=== PATIENT | male | born 1980 | race Two or more races ===

== ENCOUNTER 2017-01-30 22:30 | Emergency (ER) | payer BC ==
[~2017-01-30] VITALS: Ht 157.5 cm; Wt 44.5 kg
[2017-01-30] MEDS ORDERED: NS 55ml IV ONE (22:51)
[2017-01-30] MEDS ORDERED: HYDROmorphone 1 MG, DiphenhydrAMINE 25 MG in NS 55 ML IVPB ONE (23:15)
--- NOTE | 2017-01-30 23:20 | Emergency Room Report ---
History of Present Illness General Chief Complaint: Abdominal Pain Source: Patient, EMS Present Illness HPI Patient 36-year-old male presented after increased pain to his upper abdomen. The patient reports having had prior history of renal transplant and pancreatitis. Patient states that he had previously been on perineal dialysis. He states that he had been vomiting. He had not been having any diarrhea. Patient reports being compliant with his immunosuppressive medications. He states that he takes CellCept as well as Prograf.Patient was noted to have the no reported fever. He denies recent alcohol use. He states he's had previous episodes of pancreatitis. He states his whole similar to those episodes. Allergies: Coded Allergies: MORPHINE (Verified Allergy, Unknown, 01/30/17) Patient History Past Medical History: see triage record Reviewed Nursing Documentation: PMH: Agreed, PSxH: Agreed Nursing Documentation-PMH Past Medical History: No History, Except For Hx Hypertension: Yes Hx Dialysis: Yes - Kidney transplant Hx Seizures: Yes Review of Systems All Other Systems: negative except mentioned in HPI Physical Exam Vital Signs Date Time Temp Pulse Resp B/P Pulse Ox O2 Delivery O2 Flow Rate FiO2 01/30/17 22:41 98.1 76 16 111/76 99 Room Air Sp02 EP Interpretation: reviewed, normal General Appearance: normal inspection, well appearing, no apparent distress, alert, GCS 15, non-toxic Head: atraumatic ENT: normal ENT inspection, hearing grossly normal, normal voice Neck: normal inspection, full range of motion, supple, no bony tend Respiratory: normal inspection, lungs clear, normal breath sounds, no respiratory distress, no retraction, no wheezing Cardiovascular #1: regular rate, rhythm, no edema Gastrointestinal: normal inspection, normal bowel sounds, non tender, soft, no guarding, no hernia Genitourinary: no CVA tenderness Musculoskeletal: normal inspection, back normal, normal range of motion Neurologic: normal inspection, alert, oriented x3, responsive, ore puncher III-XII nml as tested, speech normal Psychiatric: normal inspection, judgement/insight normal, mood/affect normal Skin: normal inspection, normal color, no rash Medical Decision Making Diagnostic Impression: Primary Impression: Gastroenteritis ER Course Patient presented for abdominal pain. Differential diagnoses included ischemic bowel, appendicitis, perforated viscus, abdominal aortic aneurysm, inferior myocardial infarction, viral gastroenteritis Because of complexity of patient's case laboratory testing and imaging studies were ordered.The patient was noted to have a urine drug screen with multiple positive substances. Patient was given IV fluids as well as IV pain medications. The patient given IV antiemetics. Abdominal ultrasound showed no evidence of diminished flow to his transplant kidney or any evidence of her gallbladder disease or liver disease. The patient is advised followup with a transplant center locally have for further evaluation. Labs Test 01/31/17 00:00 White Blood Count 7.4 K/UL (4.8-10.8) Red Blood Count 4.21 M/UL (4.70-6.10) Hemoglobin 11.5 G/DL (14.2-18.0) Hematocrit 35.5 % (42.0-52.0) Mean Corpuscular Volume 84 FL (80-99) Mean Corpuscular Hemoglobin 27.4 PG (27.0-31.0) Mean Corpuscular Hemoglobin Concent 32.6 G/DL (32.0-36.0) Red Cell Distribution Width 12.8 % (11.6-14.8) Platelet Count 147 K/UL (150-450) Mean Platelet Volume 8.9 FL (6.5-10.1) Neutrophils (%) (Auto) 61.6 % (45.0-75.0) Lymphocytes (%) (Auto) 28.3 % (20.0-45.0) Monocytes (%) (Auto) 8.1 % (1.0-10.0) Eosinophils (%) (Auto) 1.2 % (0.0-3.0) Basophils (%) (Auto) 0.8 % (0.0-2.0) Prothrombin Time 10.6 SEC (9.30-11.50) Prothromb Time International Ratio 1.0 (0.9-1.1) Activated Partial Thromboplast Time 30 SEC (23-33) Urine Color Yellow Urine Appearance Clear Urine pH 5 (4.5-8.0) Urine Specific [place] 1.025 (1.005-1.035) Urine Protein 1+ (NEGATIVE) Urine Glucose (UA) Negative (NEGATIVE) Urine Ketones Negative (NEGATIVE) Urine Occult Blood Negative (NEGATIVE) Urine Nitrite Negative (NEGATIVE) Urine Bilirubin 1+ (NEGATIVE) Urine Ictotest Positive Urine Urobilinogen 1 MG/DL (0.0-1.0) Urine Leukocyte Esterase 1+ (NEGATIVE) Urine RBC 0 /HPF (0 - 0) Urine WBC 0-2 /HPF (0 - 0) Urine Squamous Epithelial Cells None /LPF (NONE/OCC) Urine Bacteria Few /HPF (NONE) Sodium Level 145 mEQ/L (135-145) Potassium Level 5.5 mEQ/L (3.4-4.9) Chloride Level 106 mEQ/L (98-107) Carbon Dioxide Level 25 mEQ/L (20-30) Anion Gap 14 (5-15) Blood Urea Nitrogen 20 mg/dL (7-23) Creatinine 1.4 mg/dL (0.7-1.2) Estimat Glomerular Filtration Rate 58.0 mL/min (>60) Glucose Level 102 mg/dL (74-106) Calcium Level 9.7 mg/dL (8.6-10.2) Total Bilirubin 0.3 mg/dL (0.0-1.2) Aspartate Amino Transf (AST/SGOT) 14 U/L (5-40) Alanine Aminotransferase (ALT/SGPT) 7 U/L (3-41) Alkaline Phosphatase 57 U/L (40-129) Troponin I < 0.30 ng/mL (<=0.30) Total Protein 6.9 g/dL (6.6-8.7) Albumin 4.1 g/dL (3.5-5.2) Globulin 2.8 g/dL Albumin/Globulin Ratio 1.4 (1.0-2.7) Lipase 44 U/L (< 60) Urine Opiates Screen Negative (NEGATIVE) Urine Barbiturates Screen Negative (NEGATIVE) Phencyclidine (PCP) Screen Negative (NEGATIVE) Urine Amphetamines Screen Positive (NEGATIVE) Urine Benzodiazepines Screen Positive (NEGATIVE) Urine Cocaine Screen Negative (NEGATIVE) Urine Marijuana (THC) Screen Positive (NEGATIVE) Last Vital Signs Date Time Temp Pulse Resp B/P Pulse Ox O2 Delivery O2 Flow Rate FiO2 01/30/17 22:41 98.1 76 16 111/76 99 Room Air Status: improved Disposition: HOME, SELF-CARE Condition: Stable Scripts Dicyclomine Hcl* (BENTYL*) 10 Mg Capsule 10 MG ORAL FOUR TIMES A DAY, #30 CAP Prov: Ronn Chan 01/31/17 Ondansetron (Zofran) 4 Mg Tablet 4 MG ORAL Q6H Y for Nausea & Vomiting, #30 TAB 0 Refills Prov: Ronn Chan 01/31/17 Ronn Chan Jan 30, 2017 23:20
[2017-01-31] MEDS ORDERED: HYDROmorphone 1 MG, DiphenhydrAMINE 25 MG in NS 55 ML IVPB ONE (00:15)
[2017-01-31] MEDS ORDERED: HYDROmorphone 1mg/ml Carpuject ONE (00:20)
[2017-01-31] MEDS ORDERED: DiphenhydrAMINE 50mg/ml Inj ONE (00:21)
[2017-01-31 00:30] VITALS: BP 120/80
[2017-01-31 00:31] LABS: BASOPHILS % (AUTO) 0.8 % (0.0-2.0); EOSINOPHILS % (AUTO) 1.2 % (0.0-3.0); LYMPHOCYTES % (AUTO) 28.3 % (20.0-45.0); MEAN CORPUSCULAR HEMOGLOBIN 27.4 PG (27.0-31.0); MEAN CORPUSCULAR HGB CONC 32.6 G/DL (32.0-36.0); MEAN CORPUSCULAR VOLUME 84 FL (80-99); MEAN PLATELET VOLUME 8.9 FL (6.5-10.1); MONOCYTES % (AUTO) 8.1 % (1.0-10.0); NEUTROPHILS % (AUTO) 61.6 % (45.0-75.0); PLATELET COUNT 147 K/UL (150-450); RED BLOOD COUNT 4.21 M/UL (4.70-6.10); RED CELL DISTRIBUTION WIDTH 12.8 % (11.6-14.8); WHITE BLOOD COUNT 7.4 K/UL (4.8-10.8)
[2017-01-31 00:34] LABS: APPEARANCE,URINE CLEAR; KETONES,URINE NEGATIVE (NEGATIVE); LEUKOCYTE ESTERASE ,URINE 1+ (NEGATIVE); NITRITE,URINE NEGATIVE (NEGATIVE); PH,URINE 5 (4.5-8.0); PROTEIN,URINE 1+ (NEGATIVE); UROBILINOGEN,URINE 1 MG/DL (0.0-1.0)
[2017-01-31 00:42] LABS: ALBUMIN/GLOBULIN RATIO 1.4 (1.0-2.7); CALCIUM 9.7 mg/dL (8.6-10.2); CREATININE 1.4 mg/dL (0.7-1.2); POTASSIUM 5.5 mEQ/L (3.4-4.9); TOTAL PROTEIN 6.9 g/dL (6.6-8.7)
[2017-01-31 00:43] LABS: PROTHROMBIN TIME 10.6 SEC (9.30-11.50); TROPONIN I < 0.30 ng/mL (<=0.30)
[2017-01-31 00:52] LABS: BACTERIA,URINE FEW /HPF; ICTOTEST POSITIVE; RBC,URINE 0 /HPF (0 - 0); WBC,URINE 0-2 /HPF (0 - 0)
[2017-01-31 01:20] VITALS: BP 110/73
[2017-01-31] MEDS ORDERED: ZOFRAN4 MG ORAL (01:35)
[2017-01-31] MEDS ORDERED: BENTYL10 MG ORAL (01:35)
[2017-01-31] MEDS ORDERED: DiphenhydrAMINE 50mg/ml Inj IVP ONE (02:00)
[2017-01-31 02:20] VITALS: BP 106/64
--- NOTE | 2017-01-31 13:30 | Diagnostic Imaging Report ---
Indication: Abdominal pain Technique: Kearns-scale and duplex images of the upper abdomen were obtained Comparison: None Findings: Exam somewhat technically limited due to severe abdominal pain, per technologist. Gallbladder could not be visualized Common bile duct measures 3 mm in diameter. No intrahepatic biliary ductal dilatation. Liver demonstrates normal echogenicity, no focal abnormality. Portal vein and hepatic veins are patent. Pancreas is obscured by bowel gas. Spleen is unremarkable. Left kidney measures 6.3 cm in length. Right kidney measures 6.2 cm length. Both kidneys demonstrate increased echogenicity There is no hydronephrosis. No focal abnormality. There is a transplant right iliac fossa kidney which measures 10 cm in length. It demonstrates normal echogenicity, no hydronephrosis or focal abnormalities. It demonstrates normal Doppler flow. The bladder is unremarkable. Abdominal aorta is obscured by bowel gas . Impression: Limited exam, nonvisualization of the pancreas and abdominal aorta Nonvisualized gallbladder. Correlate with surgical history Negative for dilated ducts Right iliac fossa transplant kidney, appears unremarkable Echogenic ione kidneys, consistent with chronic renal disease
== END 2017-01-31 02:20 | disposition home or self-care (01) ==
LOC: EMR 22:50
DX: K52.9 Noninfective gastroenteritis and colitis, unspecified (principal); Z94.0 Kidney transplant status; I10 Essential (primary) hypertension; Z88.6 Allergy status to analgesic agent
CPT/HCPCS: 36415; 76700; 80053; 80300; 81003; 83690; 84484; 85025; 85610; 85730; 96374; 96375; 99284; J1170; J1200; J2405

== ENCOUNTER 2018-10-30 22:56 | Emergency (ER) | payer BC ==
[~2018-10-30] VITALS: Ht 157.5 cm; Wt 45.4 kg
[~2018-10-30 22:56] MED LIST: BENTYL10 MG ORAL; ZOFRAN4 MG ORAL
[2018-10-30] MEDS ORDERED: PRILOSEC OTC20 MG ORAL (23:06)
[2018-10-30] MEDS ORDERED: CELLCEPT PO (23:06)
--- NOTE | 2018-10-30 23:15 | NUR ---
ED Nurse Note: RECIEVED PT FROM HOME, HERE WITH C/O ABDOMINAL/ FLANK PAIN, PT STATES PAIN IS SEVERE, AND SUDDEN AT 8/10, PT HAS HX OF KIDNEY TRANSPLANTS AND DIALYSIS, PT IMMEDIATELY STATES TO GIVE HIM DILAUDID AND BENADRYL, PT IN BED TEXTING ON CELL PHONE AND HARD TO ASSESS, PT GOWNED AND PLACED ON CARDIAC MONITORING, PT ALSO STATES SZ HISTORY SO SEIZURE PRECAUTIONS INITIATED, NO ACTIVITY NOTED, WILL RESUME CARE ORDERED AND CONTINMUE TO CLOSELY MONITOR.
--- NOTE | 2018-10-30 23:15 | NUR ---
Isael duran in EDM - 10/31/18 at 0257 by AUBREY ED Note: RECIEVED PT ON
[2018-10-30] MEDS ORDERED: HYDROcodone/Acetamin 5/325 tab ORAL ONE (23:30)
--- NOTE | 2018-10-30 23:31 | Emergency Room Report ---
History of Present Illness General Chief Complaint: Abdominal Pain Source: Patient Present Illness HPI Is a 38-year-old male with a history of renal failure status post renal transplant in 2009. He is from [place]. He presents with chief complaint abdominal pain rating to the left side. Onset today. Pain is 10 out of 10. He has nausea but no vomiting. No fever chills. Denies any other complaint. Said urine function is normal now. Allergies: Coded Allergies: MORPHINE (Verified Allergy, Unknown, 01/30/17) Patient History Past Medical History: see triage record, old chart reviewed Past Surgical History: other Pertinent Family History: none Social History: Denies: smoking Immunizations: other Reviewed Nursing Documentation: PMH: Agreed; PSxH: Agreed Nursing Documentation-PMH Past Medical History: No History, Except For Hx Hypertension: Yes Hx Dialysis: Yes - Kidney transplant Hx Seizures: Yes Review of Systems Eye: Denies: eye pain, blurred vision ENT: Denies: ear pain, nose congestion, throat swelling Respiratory: Denies: cough, shortness of breath Cardiovascular: Denies: chest pain, palpitations Gastrointestinal: Reports: abdominal pain; Denies: diarrhea, nausea, vomiting Musculoskeletal: Denies: back pain, joint pain Skin: Denies: rash Neurological: Denies: headache, numbness Endocrine: Denies: increased thirst, increased urine Hematologic/Lymphatic: Denies: easy bruising All Other Systems: negative except mentioned in HPI Physical Exam Vital Signs Date Time Temp Pulse Resp B/P (MAP) Pulse Ox O2 Delivery O2 Flow Rate FiO2 10/30/18 22:59 98.6 87 12 119/69 98 Room Air vitals normal Sp02 EP Interpretation: reviewed, normal General Appearance: well appearing, no apparent distress, alert, thin Head: normocephalic, atraumatic Eyes: bilateral eye PERRL, bilateral eye EOMI ENT: hearing grossly normal, normal pharynx Neck: full range of motion, supple, no meningismus Respiratory: chest non-tender, lungs clear, normal breath sounds Cardiovascular #1: regular rate, rhythm, no murmur Gastrointestinal: normal bowel sounds, no mass, no organomegaly, no bruit, non- distended, tenderness - Left lower quadrant Musculoskeletal: back normal, gait/station normal, normal range of motion Psychiatric: mood/affect normal Skin: warm/dry Medical Decision Making Diagnostic Impression: Primary Impression: Abdominal pain Qualified Codes: R10.84 - Generalized abdominal pain Additional Impression: Anemia Qualified Codes: D64.9 - Anemia, unspecified ER Course Patient presents with abdominal pain. He keep asking for IV Dilaudid. He wants Benadryl with it. He was comfortable walk in here without a problem. He was on his phone. He said he was nausea and vomiting at home but no vomiting here. Vitals otherwise stable. He has no cough. oxygenation is normal. Lungs are clear. I see no evidence of pneumonia in this patient even though CT scan showed reticular opacity in the left lower lobe. We'll discharge home. Lab Results Impression labs with anemia CT/MRI/US Diagnostic Results CT/MRI/US Diagnostic Results : Imaging Test Ordered: CT abd and pelvis Impression CT abdomen and pelvis read by radiologist. Reticular opacity in the left lower lobe. Extensive. location in the abdomen pelvis. This is chronic from previous. No dialysis. Last Vital Signs Date Time Temp Pulse Resp B/P (MAP) Pulse Ox O2 Delivery O2 Flow Rate FiO2 10/30/18 22:59 98.6 87 12 119/69 98 Room Air Status: improved Disposition: HOME, SELF-CARE Condition: Stable Scripts Hydrocodone/Acetaminophen 5-325* (HYDROCODONE/ACETAMINOPHEN 5-325*) 1 Each Tablet 1 TAB ORAL Q6H PRN for For Pain, #10 TAB 0 Refills Prov: Dallas Walters MD 10/31/18 Referrals: NON PHYSICIAN (PCP) Patient Instructions: Abdominal Pain, Adult Additional Instructions: Follow-up with your Dr. in 2 to 3 days. Return if symptom worsen. Dallas Walters MD Oct 30, 2018 23:31
[2018-10-30 23:58] LABS: HEMATOCRIT 24.9 % (42.0-52.0); HEMOGLOBIN 7.7 G/DL (14.2-18.0); MEAN CORPUSCULAR VOLUME 74 FL (80-99); PLATELET COUNT 153 K/UL (150-450); RED BLOOD COUNT 3.37 M/UL (4.70-6.10); RED CELL DISTRIBUTION WIDTH 16.7 % (11.6-14.8); WHITE BLOOD COUNT 6.8 K/UL (4.8-10.8)
[2018-10-31] MEDS ORDERED: fentaNYL 100 mcg/2 mL IV ONE
[2018-10-31 00:07] LABS: ANION GAP 11 mmol/L (5-15); BLOOD UREA NITROGEN 18 mg/dL (7-18); CALCIUM 8.8 MG/DL (8.5-10.1); CARBON DIOXIDE 25 MMOL/L (21-32); CHLORIDE 109 MMOL/L (98-107); CREATININE 1.5 MG/DL (0.55-1.30); POTASSIUM 4.5 MMOL/L (3.5-5.1); SODIUM 145 MMOL/L (136-145)
[2018-10-31 00:14] LABS: ALANINE AMINOTRANSFERASE 17 U/L (12-78); ALBUMIN 3.3 G/DL (3.4-5.0); ALBUMIN/GLOBULIN RATIO 0.9 (1.0-2.7); ALKALINE PHOSPHATASE 60 U/L (46-116); ASPARTATE AMINO TRANSFERASE 11 U/L (15-37); BILIRUBIN,TOTAL 0.3 MG/DL (0.2-1.0)
[2018-10-31 01:00] VITALS: BP 112/64
[2018-10-31] MEDS ORDERED: HYDROCODON-ACE1 EA15 ORAL (01:18)
[2018-10-31 02:20] VITALS: BP 109/57
--- NOTE | 2018-10-31 02:20 | NUR ---
ED Nurse Note: PT FINALLY AGREES TO TAKING IV FENTANYL WITHOUT BENADRYL, PT KEPT REFUSING BECAUSE NO BENADRYL WAS ORDERED, PT HAD NO REACTION TO MED, NO S/S AT ALL, PT PAIN LEVEL DECREASED TO 5, PT STILL ANGRY HE DID NOT RECIEVE DILAUDID MED HE ORDERED, PT IV LINE REMOVED, PT GIVEN F/U INFO AND AFTER CARE INSTRUCTIONS, ALSO RE-VERBALIZES PROPER MEDICATION ADMINISTRATION, ARM BAND REMOVED, NAD NOTED DURING D/C TO HOME.
--- NOTE | 2018-10-31 12:09 | Diagnostic Imaging Report ---
Indication: Abdominal pain for 3 days Technique: Spiral acquisitions obtained through the abdomen and pelvis. No oral contrast utilized, per emergency room physician request No IV contrast utilized, per referring physician request.. Multiplanar reconstructions were generated. Total dose length product 367.64 mGycm. CTDIvol(s) 8.43 mGy. Dose reduction achieved using automated exposure control Comparison: None Findings: There is extensive calcification of the peritoneal surfaces noted. This appears to result in some clumping of small bowel in the right lower quadrant. The appendix is normal. The colon is diffusely mildly dilated and stool-filled. There is a focally dilated single small bowel loop in the central abdomen, but no generalized small bowel distention is evident. There is a sliding-type hiatal hernia. The duodenum and remainder the stomach are unremarkable. There is a crescent-shaped fluid collection anterior to the stomach and deep to the left upper quadrant abdominal wall measuring 8 x 2 x 6 cm. Lack of IV contrast limits assessment of the solid organs. The liver is unremarkable. The gallbladder is not definitely visualized. No biliary ductal dilatation. The pancreas is unremarkable. The spleen is unremarkable. The adrenals are unremarkable. The kidneys are markedly atrophic. No retroperitoneal or mesenteric mass or adenopathy. No pelvic mass or adenopathy. There is a right lower quadrant renal allograft. The ureter appears somewhat dilated but there is no dilatation of the renal collecting system The included lung bases demonstrate consolidation and/or scarring in the inferior lingula and left lower lobe. The bones demonstrate diffuse trabecular prominence likely related to renal osteodystrophy. Impression: Left basilar pulmonary parenchymal consolidation and/or scarring Atrophic bilateral kidneys. Right lower quadrant renal allograft. The ureter is dilated but there is no definite hydronephrosis Unusual extensive peritoneal calcification, suspect on the basis of inflammation related to prior peritoneal dialysis 8 x 2 x 6 cm fluid collection in the anterior left upper quadrant, deep to the abdominal wall. Suspect chronic, but infected collection not excludable Hiatal hernia Possible prior cholecystectomy Evidence of renal osteodystrophy The CT scanner at [facility] is accredited by the [employer] and the scans are performed using protocols designed to limit radiation exposure to as low as reasonably achievable to attain images of sufficient resolution adequate for diagnostic evaluation.
== END 2018-10-31 02:20 | disposition home or self-care (01) ==
LOC: EMR 23:13
DX: R10.84 Generalized abdominal pain (principal); D64.9 Anemia, unspecified; Z88.6 Allergy status to analgesic agent; I10 Essential (primary) hypertension; Z94.0 Kidney transplant status; G40.909 Epilepsy, unspecified, not intractable, without status epilepticus
CPT/HCPCS: 36415; 74176; 80053; 83690; 85025; 96361; 96374; 96375; 99284; J2405; J3010